=== PATIENT | female | born 1980 | race Caucasian/White ===

== ENCOUNTER 2019-09-13 06:39 | Day surgery (SDC) | payer BC ==
[2019-09-12 17:26] LABS: BLOOD UREA NITROGEN,BUN 17 mg/dL (7.0-18.0); CARBON DIOXIDE,CO2 19.9 mmol/L (21.0-32.0); CHLORIDE,CL 104 mmol/L (98-107); GLUCOSE RANDOM 134 mg/dL (74-106); POTASSIUM,K 3.5 mmol/L (3.5-5.1); SODIUM,NA 140 mmol/L (136-145)
[~2019-09-13 06:39] MED LIST: ceFAZolin 2 GM in Premix Bag 1 BAG IV ONE
[2019-09-13] MEDS: Lactated Ringers 1,000 ML IV SCH ×2 (07:00→13:11)
[2019-09-13] MEDS ORDERED: Scopolamine 1.5 MG Transdermal Patch TRDERM PRN (07:01)
--- NOTE | 2019-09-13 07:03 | PCM.PREANE ---
Preanesthetic Assessment - Anesthesia/Transfusion/Family Hx Anesthesia History: Prior Anesthesia Without Reaction Family History of Anesthesia Reaction: No Transfusion History: No Prior Transfusion(s) Intubation History: Unknown - Review of Systems General: No Symptoms Pulmonary: No Symptoms Cardiovascular: No Symptoms Gastrointestinal: No Symptoms Neurological: No Symptoms Other: Reports: None - Physical Assessment Height: 5 ft 2.5 in Weight: 103.419 kg ASA Class: 2 Mental Status: Alert & Oriented x3 Airway Class: Mallampati = 2 Dentition: Reports: Normal Dentition Thyro-Mental Finger Breadths: 3 Mouth Opening Finger Breadths: 3 ROM/Head Extension: Full Lungs: Clear to Auscultation, Normal Respiratory Effort Cardiovascular: Regular Rate, Regular Rhythm - Lab Values: Laboratory Last Values WBC 8.90 K/uL (4.0-11.0) 09/12/19 16: RBC 5.14 M/uL (4.30-5.90) 09/12/19 16:27 Hgb 14.2 g/dL (12.0-16.0) 09/12/19 16: Hct 41.9 % (36.0-46.0) 09/12/19 16:27 MCV 81.5 fL (80.0-98.0) 09/12/19 16: MCH 27.6 pg (27.0-32.0) 09/12/19 16: MCHC 33.9 g/dL (31.0-37.0) 09/12/19 16:27 RDW Std Deviation 41.0 fl (28.0-62.0) 09/12/19 16:27 RDW Coeff of Anca 14 % (11.0-15.0) 09/12/19 16:27 Plt Count 280 K/uL (150-400) 09/12/19 16:27 MPV 9.80 fL (7.40-12.00) 09/12/19 16: Nucleated RBC % 0.0 /100WBC 09/12/19 16: Nucleated RBCs # 0 K/uL 09/12/19 16:27 Sodium 140 mmol/L (136-145) 09/12/19 16:27 Potassium 3.5 mmol/L (3.5-5.1) 09/12/19 16: Chloride 104 mmol/L (98-107) 09/12/19 16:27 Carbon Dioxide 19.9 mmol/L (21.0-32.0) L 09/12/19 16:27 BUN 17 mg/dL (7.0-18.0) 09/12/19 16:27 Creatinine 0.9 mg/dL (0.6-1.0) 09/12/19 16:27 Est Cr Clr Drug Dosing 66.55 mL/min 09/12/19 16:27 Estimated GFR (MDRD) > 60.0 ml/min 09/12/19 16:27 Glucose 134 mg/dL (74-106) H 09/12/19 16:27 Calcium 9.2 mg/dL (8.5-10.1) 09/12/19 16:27 Blood Type O POSITIVE 09/12/19 16:27 Antibody Screen NEGATIVE 09/12/19 16:27 - Allergies Allergies/Adverse Reactions: Allergies Allergy/AdvReac Type Severity Reaction Status Date / Time No Known Allergies Allergy Verified 09/07/19 11:42 - Blood Blood Available: No - Anesthesia Plan Pre-Op Medication Ordered: None - Acknowledgements Anesthesia Type Planned: General Anesthesia Pt an Appropriate Candidate for the Planned Anesthesia: Yes Alternatives and Risks of Anesthesia Discussed w Pt/Guardian: Yes Pt/Guardian Understands and Agrees with Anesthesia Plan: Yes PreAnesthesia Questionnaire HEENT History: Reports: Other (See Below) Other HEENT History: wears contacts/glasses Cardiovascular History: Reports: None, Hypertension (on and off, no medications prescribed) Respiratory History: Reports: None Gastrointestinal History: Reports: None Genitourinary History: Reports: None SIZE STAMPER History: Reports: Musculoskeletal History: Reports: Fracture Other Musculoskeletal History: hx fx wrist as a child Neurological History: Reports: None Psychiatric History: Reports: None Endocrine/Metabolic History: Reports: Obesity/BMI 30+ (BMI 41) Hematologic History: Reports: None Immunologic History: Reports: None Oncologic (Cancer) History: Reports: None Dermatologic History: Reports: None - Past Surgical History Head Surgeries/Procedures: Reports: None HEENT Surgical History: Reports: Adenoidectomy, Tonsillectomy Cardiovascular Surgical History: Reports: None Respiratory Surgical History: Reports: None GI Surgical History: Reports: Cholecystectomy Female Surgical History: Reports: Breast Biopsy, Breast Reduction, Other ( See Below) Other Female Surgeries/Procedures: ESSURE Endocrine Surgical History: Reports: None Neurological Surgical History: Reports: None Musculoskeletal Surgical History: Reports: None Oncologic Surgical History: Reports: None Dermatological Surgical History: Reports: None - SUBSTANCE USE Smoking Status *Q: Never Smoker - HOME MEDS Home Medications: Home Meds Ibuprofen [Advil] 1 - 2 tab PO ASDIRECTED PRN 09/07/19 [History] - CURRENT (IN HOUSE) MEDS Current Meds: Current Medications Lactated Ringer's (Ringers, Lactated) 1,000 mls @ 125 mls/hr IV ASDIRECTED FORMERLY [facility], 1928–1983 Cefazolin Sodium/Dextrose 2 gm (/ Premix) 50 mls @ 100 mls/hr IV ONETIME ONE Stop: 09/13/19 07:01
[2019-09-13] MEDS ORDERED: Scopolamine 1.5 MG Transdermal Patch ONE (07:09)
[2019-09-13] MEDS ORDERED: Rocuronium 100 MG/10 ML Syringe ONE (07:18)
[2019-09-13] MEDS ORDERED: Lidocaine 2% 5 ML SDV ONE (07:18)
[2019-09-13] MEDS ORDERED: Propofol 200 MG/20 ML SDV ONE (07:19)
[2019-09-13] MEDS ORDERED: Midazolam 1 MG/ML 2 ML SDV ONE (07:19)
[2019-09-13] MEDS ORDERED: fentaNYL 250 MCG/5 ML SDV ONE (07:19)
[2019-09-13] MEDS ORDERED: Bupivacaine 0.5% 30 ML SDV ONE (07:30)
[2019-09-13] MEDS ORDERED: Methylene Blue 50 MG/10 ML Ampule ONE (07:30)
[2019-09-13] MEDS ORDERED: ceFAZolin/Dextrose,Iso-Osmotic 2 GM/50 ML Duplex Bag IV ONE (07:46)
[2019-09-13] MEDS ORDERED: Glycopyrrolate 0.2 MG/ML SDV ONE ×2 (08:46→08:47)
[2019-09-13] MEDS ORDERED: fentaNYL 100 MCG/2 ML SDV IVPUSH PRN (09:05)
[2019-09-13] MEDS ORDERED: HYDROmorphone 1 MG/ML Syringe IVPUSH ONE (09:06)
[2019-09-13] MEDS ORDERED: Ketorolac 30 MG/ML SDV IVPUSH ONE ×2 (09:06→10:26)
[2019-09-13] MEDS ORDERED: Acetaminophen 1,000 MG in Premix Bag 1 BAG IV ONE (09:06)
[2019-09-13] MEDS ORDERED: Octyl 2-Cyanoacrylate 1 Tube ONE (09:14)
[2019-09-13] MEDS ORDERED: HYDROmorphone 2 MG/ML Syringe IVPUSH ONE (09:15)
[2019-09-13] MEDS ORDERED: Fluorescein 5 ML Vial ONE (09:40)
[2019-09-13] MEDS ORDERED: Ondansetron 4 MG/2 ML SDV ONE (09:47)
[2019-09-13] MEDS ORDERED: Furosemide 40 MG/4 ML VIAL ONE (09:47)
[2019-09-13] MEDS ORDERED: Ketorolac 30 MG/ML SDV ONE (09:59)
[2019-09-13] MEDS ORDERED: Sugammadex Sodium 200 MG/2 ML VIAL ONE (10:00)
--- NOTE | 2019-09-13 10:25 | PCM.OPNOTE ---
- General Post-Op/Procedure Note Date of Surgery/Procedure: 09/13/19 Operative Procedure(s): laparoscopically assisted vaginal hysterectomy, bilateral salpingectomy, excision of right paraovarian cyst (torsed), and cystoscopy Findings: normal appearing tubes and uterus, right ovary had a torse, slightly pedunculated cyst (paraovarian cyst. Ovaries otherwise normal. The appendix appeared normal, there some filmy adhesions in the LLQ. On cystoscopy there was copious flow of bright green urine from bilateral ureters Pre Op Diagnosis: menorrhagia Post-Op Diagnosis: Same and right paraovarian cyst. Anesthesia Technique: General ET Tube Primary Surgeon: Jessy Hoyt Secondary Surgeon: Kavita Carmona Anesthesia Provider: Carly Sykes Medical Certification Specialist: Gio Ruano Pathology: right paraovarian cyst, torsed, hemorrhagic, uterus, bilateral fallopian tubes with Essure implants. Fluid Replacement, Intraop: 2,400 Output, Urine Amount: 500 EBL in mLs: 250 Complications: None Known Condition: Good
[2019-09-13] MEDS ORDERED: Promethazine 25 MG/ML SDV IM PRN (10:26)
[2019-09-13] MEDS ORDERED: Morphine 4 MG/ML Syringe IVPUSH PRN (10:26)
[2019-09-13] MEDS ORDERED: Ondansetron 4 MG/2 ML SDV IVPUSH PRN (10:26)
[2019-09-13] MEDS ORDERED: Acetaminophen/oxyCODONE 325-5 MG Tab PO PRN (10:26)
[2019-09-13] MEDS ORDERED: Meperidine PF 25 MG/ML Syringe IVPUSH ONE (10:41)
[2019-09-13] MEDS ORDERED: HYDROmorphone 2 MG/ML Syringe IVPUSH PRN (11:09)
--- NOTE | 2019-09-13 11:16 | PCM.POSTAN ---
POST ANESTHESIA ASSESSMENT - MENTAL STATUS Mental Status: Alert, Oriented - VITAL SIGNS Vital Signs: Last Vital Signs Temp 35.9 C 09/13/19 10:18 Pulse 86 09/13/19 11:09 Resp 10 L 09/13/19 11:09 BP 163/93 H 09/13/19 11:09 Pulse Ox 98 09/13/19 11:09 - RESPIRATORY Respiratory Status: Respiratory Rate WNL, Airway Patent, O2 Saturation Stable - CARDIOVASCULAR CV Status: Pulse Rate WNL, Blood Pressure Stable - GASTROINTESTINAL GI Status: No Symptoms - PAIN Pain Score: 4 - POST OP HYDRATION Hydration Status: Adequate & Stable - OBSERVATIONS Free Text/Narrative:: No anesthesia problems
--- NOTE | 2019-09-13 11:40 | OR ---
SURGEON: Jessy Hoyt M.D. DATE OF PROCEDURE: 09/13/2019 PREOPERATIVE DIAGNOSIS: Menorrhagia. POSTOPERATIVE DIAGNOSES: Menorrhagia and right paraovarian cyst. PROCEDURES PERFORMED: Laparoscopically-assisted vaginal hysterectomy, bilateral salpingectomy, excision of right paraovarian cyst, and cystoscopy. PRIMARY SURGEON: Jessy Hoyt MD. COMBINATION BUILDING INSPECTOR: Kavita Carmona MD. ANESTHESIA: General endotracheal. FLUIDS: 2400 mL of crystalloid. ESTIMATED BLOOD LOSS: 350 mL. URINE OUTPUT: 500 mL. FINDINGS: Normal-appearing uterus. The Essure implants were noted in the proximal tube in the appropriate position. Normal-appearing left tube and ovary. The right tube appeared normal, however, there was a hemorrhagic, torsed, slightly pedunculated right paraovarian cyst that was removed. Upon cystoscopy, there was no evidence of any trauma to the bladder mucosa. There was copious flow of urine from bilateral ureteral orifices. COMPLICATIONS: None known. DISPOSITION: Stable to Recovery. PATHOLOGY SPECIMEN: Uterus, bilateral fallopian tubes with the Essure implants, and the right paraovarian cyst. BRIEF HISTORY: This is a 39-year-old female. She presents with complaint of heavy periods and pain prior to her period that is debilitating and severe, worsening over the past year. She states that she will bleed through a super plus tampon and a pad in an hour. Her periods occur every 21 days with spotting randomly between. She has no postcoital bleeding. She has been offered conservative management with Lysteda, levonorgestrel IUD, endometrial ablation; however, she desires definitive therapy with hysterectomy. Ultrasound showed endometrial thickness of 7 mm. Endometrial biopsy was performed, was benign. She presents for laparoscopically-assisted vaginal hysterectomy with two prior vaginal deliveries. Risks were discussed including bleeding; infection; thromboembolic event; injury to bowel, bladder, blood vessels, ureters, or other organs; risk of anesthesia; also risk of change in sexual function. Understanding all these, she does desire to proceed. DESCRIPTION OF PROCEDURE: With the patient in dorsal lithotomy position, under adequate general endotracheal anesthesia, the abdomen was prepped with chlorhexidine. The perineum and vagina were prepped with Betadine and draped in the usual fashion for laparoscopic surgery. SCDs were in place. Ivey catheter had been placed and backfilled with 30 mL of dilute indigo carmine, and she had received 2 g of Ancef IV. An appropriate time-out was held, and after appropriately draping the patient, the bimanual examination was performed with a well-supported, but mobile 10-week size uterus. No adnexal masses were palpable. The speculum was placed in the vagina and the cervix was grasped with a Juanita tenaculum. The cervix was dilated to an 8 mm Hegar dilator. The ZUMI uterine manipulator was placed and the balloon was filled with 3 mL of air. The instruments were removed from the vagina. Railway Shunter's gloves were changed. Attention was then turned abdominally, where 3 mL of 0.25% Marcaine was injected cephalad from the umbilicus. A transverse curvilinear incision was made just above the umbilicus and the anterior abdominal wall was elevated. Veress needle was inserted. Opening pressure was 5 mmHg. Hanging drop test also confirmed the intraperitoneal placement. CO2 was insufflated to develop an adequate pneumoperitoneum of 15 mmHg. A 5 mm port was then placed after the Veress needle was removed and the laparoscope was placed into the abdominal cavity. There was no evidence of any trauma from the laparoscope placement site. The right tube had the obvious 3 cm paratubal cyst that was hemorrhagic. Otherwise, upon inspection of pelvis, there were no significant adhesions except some filmy bowel adhesions in the left lower quadrant away from the anticipated port placement site. The patient was placed in steep Trendelenburg position. Two additional ports were placed, 2 cm medial and cephalad from the anterior superior iliac spine on the right and the left under direct visualization. The uterus was then elevated. The ureters were identified deep in the pelvis and the paraovarian cyst on the right was removed by cauterizing across the base with the LigaSure. This was then placed in the posterior cul-de-sac for removal with the uterus. The tip of the right tube was grasped and the mesosalpinx was incised, starting distally and proceeding proximally using the LigaSure. The uteroovarian ligament was then doubly cauterized and cut and then proceeding down the broad ligament beginning with incising, doubly cauterizing, and cutting the round ligament. The anterior and posterior leaves of the broad ligament were then dissected and opened. The uterine vessels were skeletonized and doubly cauterized and cut and the anterior leaf of the broad ligament was opened and this incision was continued anteriorly across the lower uterine segment to develop an adequate bladder flap. This process was repeated on the left without difficulty, and once the uterine vessels were cauterized and the bladder flap was adequately developed, the abdomen was then desufflated. The instruments had been removed and attention was then turned vaginally. The Ivey catheter was opened to allow drainage. A weighted speculum was placed posteriorly and vaginal sidewall retractors were utilized. The cervix was grasped with a Juanita tenaculum after the ZUMI uterine manipulator was removed. The cervix was circumscribed using electrocautery. The posterior cul-de-sac was entered sharply. The cyst was not immediately seen. Therefore, the Kwabena-Auvard speculum was placed posteriorly. The anterior cul-de-sac was entered using Metzenbaum scissors with careful dissection immediately adjacent to the uterus, and with sharp and blunt dissection, the anterior cul-de-sac was entered. A right angle retractor was placed. The uterosacral ligaments were then doubly clamped with Mekhi clamps, cut, and ligated using a simple tie followed by Mekhi ligature of 2-0 Polysorb. Two additional pedicles were taken on the right and the left for the lower portion of the uterosacral ligament, doubly clamping, cutting, and ligating using a simple tie followed by a Mekhi ligature of 2-0 Polysorb. With this, the uterus and tubes were free and were delivered vaginally, sent to pathology. The previously excised paraovarian cyst was then identified and grasped with a [place] clamp and sent as a separate pathology specimen. The retained ligatures of the uterosacral ligaments were then ligated to the vaginal apices bilaterally. Careful inspection was performed to confirm hemostasis. A single pedicle was taken on the left just above the uterosacral ligament with a Mekhi clamp, and a simple suture was placed for complete hemostasis. No further bleeding was identified with careful inspection and therefore any packing was removed from the abdominal cavity. The vaginal mucosa was closed with a running lock suture of 0 Polysorb, and the Ivye catheter was removed. IV Lasix and fluorescein were given. Cystoscopy was performed using sterile water as a distending medium. Bilateral ureteral orifices were easily identified and there was copious flow of urine that had been dyed bright green with the fluorescein. There was also no evidence of any trauma to the bladder mucosa. This being completed, the cystoscope was removed. The Ivey catheter was replaced and a speculum was placed in the vagina to inspect the cuff, which was hemostatic. There was no collection of blood in the vagina. Attention was then turned laparoscopically after cut to length operator's gloves were changed. The abdomen was re-insufflated and a careful and thorough inspection was performed utilizing sterile water as an irrigant. There was no bleeding from any areas of the pelvis under high and low pressure and therefore the abdomen was desufflated. The port sites were removed and the skin was closed with a subcuticular suture of 4-0 Monocryl. Final sponge, needle, and instrument counts were reported as correct. There were no known complications. The patient was transferred to Recovery in good condition. SYLVIA ANNA /[id number]
[2019-09-13] MEDS: HYDROmorphone 2 MG/ML Syringe IVPUSH PRN ×2 (13:06→21:16)
[2019-09-13] MEDS: Ketorolac 30 MG/ML SDV IVPUSH SCH ×2 (15:51→22:32)
[2019-09-13] MEDS: Acetaminophen/oxyCODONE 325-5 MG Tab PO PRN (17:10)
[2019-09-14] MEDS: Ketorolac 30 MG/ML SDV IVPUSH SCH (04:29)
[2019-09-14 06:24] LABS: BLOOD UREA NITROGEN,BUN 12 mg/dL (7.0-18.0); CARBON DIOXIDE,CO2 27.7 mmol/L (21.0-32.0); CHLORIDE,CL 103 mmol/L (98-107); GLUCOSE RANDOM 102 mg/dL (74-106); POTASSIUM,K 3.6 mmol/L (3.5-5.1); SODIUM,NA 137 mmol/L (136-145)
--- NOTE | 2019-09-14 07:44 | PCM48HPAN ---
Post Anesthesia Note - EVALUATION WITHIN 48HRS OF ANESTHETIC Vital Signs in Normal Range: Yes Patient Participated in Evaluation: Yes Respiratory Function Stable: Yes Airway Patent: Yes Cardiovascular Function Stable: Yes Hydration Status Stable: Yes Pain Control Satisfactory: Yes Nausea and Vomiting Control Satisfactory: Yes Mental Status Recovered: Yes Vital Signs: Last Vital Signs Temp 36.8 C 09/14/19 04:58 Pulse 82 09/14/19 04:58 Resp 14 09/14/19 04:58 BP 108/66 09/14/19 04:58 Pulse Ox 95 09/14/19 04:58
[2019-09-14] MEDS: Acetaminophen/oxyCODONE 325-5 MG Tab PO PRN (08:32)
--- NOTE | 2019-09-14 08:46 | PCM.SURGPN ---
- General Info Date of Service: 09/14/19 Date of Surgery/Procedure: 09/13/19 POD#: 1 Post-Op Diagnosis: menorrhagia Functional Status: Reports: Pain Controlled (moderately well controlled. Movement helps, taking percocet occcasionally. ), Tolerating Diet, Ambulating, Urinating - Review of Systems General: Reports: No Symptoms HEENT: Reports: No Symptoms Pulmonary: Reports: No Symptoms Cardiovascular: Reports: No Symptoms Gastrointestinal: Reports: No Symptoms Genitourinary: Reports: No Symptoms Musculoskeletal: Reports: No Symptoms Skin: Reports: No Symptoms Neurological: Reports: No Symptoms Psychiatric: Reports: No Symptoms - Patient Data Vitals - Most Recent: Last Vital Signs Temp 36.8 C 09/14/19 04:58 Pulse 82 09/14/19 04:58 Resp 14 09/14/19 04:58 BP 108/66 09/14/19 04:58 Pulse Ox 95 09/14/19 04:58 Weight - Most Recent: 103.419 kg I&O - Last 24 Hours: Intake & Output 09/13/19 09/14/19 09/14/19 22:59 06:59 14:59 Output Total 325 700 Balance -325 -700 Lab Results Last 24 Hrs: Laboratory Results - last 24 hr 09/14/19 09/14/19 Range/Units 06:00 06:00 Hgb 10.9 L (12.0-16.0) g/dL Hct 32.6 L (36.0-46.0) % Sodium 137 (136-145) mmol/L Potassium 3.6 (3.5-5.1) mmol/L Chloride 103 (98-107) mmol/L Carbon Dioxide 27.7 (21.0-32.0) mmol/L BUN 12 (7.0-18.0) mg/dL Creatinine 0.7 (0.6-1.0) mg/dL Est Cr Clr Drug Dosing 85.57 mL/min Estimated GFR (MDRD) > 60.0 ml/min Glucose 102 (74-106) mg/dL Calcium 8.3 L (8.5-10.1) mg/dL Med Orders - Current: Current Medications Fentanyl (Sublimaze) 50 - 100 mcg IVPUSH Q5M PRN PRN Reason: Pain (severe 7-10) Hydromorphone HCl (Dilaudid) 1 mg IVPUSH Q1H PRN PRN Reason: Abdominal Pain Last Admin: 09/13/19 21:16 Dose: 1 mg Hydromorphone HCl (Dilaudid) 1 - 2 mg IVPUSH ONETIME PRN PRN Reason: Pain Last Admin: 09/13/19 10:50 Dose: 1 mg Lactated Ringer's (Ringers, Lactated) 1,000 mls @ 125 mls/hr IV ASDIRECTED [facility] Last Admin: 09/13/19 13:11 Dose: 125 mls/hr Ketorolac Tromethamine (Toradol) 30 mg IVPUSH Q6H [facility] Stop: 09/18/19 10:26 Last Admin: 09/14/19 04:29 Dose: 30 mg Morphine Sulfate (Morphine) 4 mg IVPUSH Q2H PRN PRN Reason: Pain (severe 7-10) Ondansetron HCl (Zofran) 4 mg IVPUSH Q6H PRN PRN Reason: Nausea/Vomiting Oxycodone/Acetaminophen (Percocet 325-5 Mg) 1 tab PO Q4H PRN PRN Reason: Pain (moderate 4-6) Last Admin: 09/14/19 08:32 Dose: 1 tab Oxycodone/Acetaminophen (Percocet 325-5 Mg) 2 tab PO Q4H PRN PRN Reason: Pain (moderate 4-6) Promethazine HCl (Phenergan) 25 mg IM Q6H PRN PRN Reason: Nausea/Vomiting Scopolamine (Transderm-Scop) 1.5 mg TRDERM Q72H PRN PRN Reason: Nausea Last Admin: 09/13/19 07:10 Dose: 1.5 mg Discontinued Medications Bupivacaine HCl (Marcaine 0.5%) Confirm Administered Dose 30 ml .ROUTE .STK-MED ONE Stop: 09/13/19 07:31 Cefazolin Sodium/Dextrose (Ancef) Confirm Administered Dose 2 gm IV .STK-MED ONE Stop: 09/13/19 07:47 Fentanyl (Sublimaze) Confirm Administered Dose 250 mcg .ROUTE .STK-MED ONE Stop: 09/13/19 07:20 Fluorescein Sodium (Ak-Fluor) Confirm Administered Dose 5 ml .ROUTE .STK-MED ONE Stop: 09/13/19 09:41 Furosemide (Lasix) Confirm Administered Dose 40 mg .ROUTE .STK-MED ONE Stop: 09/13/19 09:48 Glycopyrrolate (Robinul) Confirm Administered Dose 0.2 mg .ROUTE .STK-MED ONE Stop: 09/13/19 08:47 Glycopyrrolate (Robinul) Confirm Administered Dose 0.2 mg .ROUTE .STK-MED ONE Stop: 09/13/19 08:48 Hydromorphone HCl (Dilaudid) 1 mg IVPUSH ONETIME ONE Stop: 09/13/19 09:16 Last Admin: 09/13/19 10:25 Dose: 1 mg Cefazolin Sodium/Dextrose 2 gm (/ Premix) 50 mls @ 100 mls/hr IV ONETIME ONE Stop: 09/13/19 07:01 Acetaminophen 1,000 mg/ Premix 100 mls @ 400 mls/hr IV NOW ONE Stop: 09/13/19 09:20 Last Admin: 09/13/19 10:30 Dose: 400 mls/hr Acetaminophen (Ofirmev) Confirm Administered Dose 100 mls @ as directed .ROUTE .ST-MED ONE Stop: 09/13/19 10:24 Ketorolac Tromethamine (Toradol) 30 mg IVPUSH ONETIME ONE Stop: 09/13/19 09:07 Last Admin: 09/13/19 10:38 Dose: 30 mg Ketorolac Tromethamine (Toradol) Confirm Administered Dose 30 mg .ROUTE .STK- MED ONE Stop: 09/13/19 10:00 Ketorolac Tromethamine (Toradol) 30 mg IVPUSH ONETIME ONE Stop: 09/13/19 10:27 Lidocaine (Xylocaine-Mpf 2%) Confirm Administered Dose 5 ml .ROUTE .STK-MED ONE Stop: 09/13/19 07:19 Meperidine HCl (Demerol) 25 mg IVPUSH ONETIME ONE Stop: 09/13/19 10:42 Last Admin: 09/13/19 10:45 Dose: 25 mg Methylene Blue (Provayblue) Confirm Administered Dose 50 mg .ROUTE .STK-MED ONE Stop: 09/13/19 07:31 Midazolam HCl (Versed 1 Mg/Ml) Confirm Administered Dose 2 mg .ROUTE .STK-MED ONE Stop: 09/13/19 07:20 Octyl Cyanoacrylate (Dermabond Advance) Confirm Administered Dose 1 applic .ROUTE .STK-MED ONE Stop: 09/13/19 09:15 Ondansetron HCl (Zofran) Confirm Administered Dose 8 mg .ROUTE .STK-MED ONE Stop: 09/13/19 09:48 Propofol (Diprivan 20 Ml) Confirm Administered Dose 200 mg .ROUTE .STK-MED ONE Stop: 09/13/19 07:20 Rocuronium Hamilton (Zemuron) Confirm Administered Dose 100 mg .ROUTE .STK-MED ONE Stop: 09/13/19 07:19 Scopolamine (Transderm-Scop) Confirm Administered Dose 1.5 mg .ROUTE .STK-MED ONE Stop: 09/13/19 07:10 Sugammadex Sodium (Bridion) Confirm Administered Dose 200 mg .ROUTE .STK-MED ONE Stop: 09/13/19 10:01 - Exam Wound/Incisions: Dressing Dry and Intact General: Alert, Oriented HEENT: Pupils Equal Neck: Supple Lungs: Normal Respiratory Effort GI/Abdominal Exam: Soft, Non-Tender, No Organomegaly, No Distention, No Mass Extremities: Normal Inspection, Non-Tender, No Pedal Edema Skin: Warm, Dry, Intact Neurological: No New Focal Deficit Psy/Mental Status: Alert, Normal Affect, Normal Mood Sepsis Event Note - Evaluation Sepsis Screening Result: No Definite Risk - Focused Exam Vital Signs: Vital Signs Temp Pulse Resp BP Pulse Ox 09/14/19 04:58 36.8 C 82 14 108/66 95 Date Exam was Performed: 09/14/19 Time Exam was Performed: 08:44 - Problem List & Annotations (1) Menorrhagia SNOMED Code(s): 018615713 Code(s): N92.0 - EXCESSIVE AND FREQUENT MENSTRUATION WITH REGULAR CYCLE Status: Acute Current Visit: Yes Qualifiers: Menorrahagia type: with irregular cycle Qualified Code(s): N92.1 - Excessive and frequent menstruation with irregular cycle - Problem List Review Problem List Initiated/Reviewed/Updated: Yes - My Orders Last 24 Hours: Active Orders 24 hr Category Date Time Status Patient Status [ADT] Routine ADT 09/13/19 10:26 Active Antiembolic Devices [RC] PER UNIT ROUTINE Care 09/13/19 10:26 Active Bradycardia-Neuroaxis [employer] [RC] ROUTINE Care 09/13/19 09:08 Active Hypertension-Neuroaxis [employer] [RC] ROUTINE Care 09/13/19 09:08 Active Hypotension-Neuroaxis [employer] [RC] ROUTINE Care 09/13/19 09:08 Active Notify Provider Intake and Out [RC] ASDIRECTED Care 09/13/19 10:26 Active Notify Provider Vital Signs [RC] ASDIRECTED Care 09/13/19 10:26 Active Oxygen Therapy [RC] ASDIRECTED Care 09/13/19 10:26 Active RT Incentive Spirometry [RC] Q2HWA Care 09/13/19 10:26 Active Ready for Discharge [RC] PER UNIT ROUTINE Care 09/14/19 08:19 Active Up ad Anila [RC] PER UNIT ROUTINE Care 09/13/19 10:26 Active Urinary Catheter Removal [RC] Per Unit Routine Care 09/13/19 10:26 Active Vital Signs [RC] PER UNIT ROUTINE Care 09/13/19 10:26 Active Regular Diet [DIET] Diet 09/13/19 Dinner Active Acetaminophen/oxyCODONE [Percocet 325-5 MG] Med 09/13/19 10:26 Active 1 tab PO Q4H PRN Acetaminophen/oxyCODONE [Percocet 325-5 MG] Med 09/13/19 10:26 Active 2 tab PO Q4H PRN HYDROmorphone [Dilaudid] Med 09/13/19 11:09 Active 1 - 2 mg IVPUSH ONETIME PRN HYDROmorphone [Dilaudid] Med 09/13/19 09:11 Active 1 mg IVPUSH Q1H PRN Ketorolac [Toradol] Med 09/13/19 10:30 Active 30 mg IVPUSH Q6H Morphine Med 09/13/19 10:26 Active 4 mg IVPUSH Q2H PRN Ondansetron [Zofran] Med 09/13/19 10:26 Active 4 mg IVPUSH Q6H PRN Promethazine [Phenergan] Med 09/13/19 10:26 Active 25 mg IM Q6H PRN fentaNYL [Sublimaze] Med 09/13/19 09:05 Active 50 - 100 mcg IVPUSH Q5M PRN Peripheral IV Discontinue [OM.PC] Routine Oth 09/13/19 10:26 Ordered Sequential Compression Device [OM.PC] Per Unit Routine Oth 09/13/19 10:26 Ordered Resuscitation Status Routine Resus Stat 09/13/19 10:26 Ordered Medication Orders Fentanyl (Sublimaze) 50 - 100 mcg IVPUSH Q5M PRN PRN Reason: Pain (severe 7-10) Hydromorphone HCl (Dilaudid) 1 mg IVPUSH Q1H PRN PRN Reason: Abdominal Pain Last Admin: 09/13/19 21:16 Dose: 1 mg Admin: 09/13/19 13:06 Dose: 1 mg Hydromorphone HCl (Dilaudid) 1 - 2 mg IVPUSH ONETIME PRN PRN Reason: Pain Last Admin: 09/13/19 10:50 Dose: 1 mg Lactated Ringer's (Ringers, Lactated) 1,000 mls @ 125 mls/hr IV ASDIRECTED [facility] Last Admin: 09/13/19 13:11 Dose: 125 mls/hr Infusion: 09/13/19 13:11 Dose: 125 mls/hr Admin: 09/13/19 07:00 Dose: 125 mls/hr Ketorolac Tromethamine (Toradol) 30 mg IVPUSH Q6H [facility] Stop: 09/18/19 10:26 Last Admin: 09/14/19 04:29 Dose: 30 mg Admin: 09/13/19 22:32 Dose: 30 mg Admin: 09/13/19 15:51 Dose: 30 mg Morphine Sulfate (Morphine) 4 mg IVPUSH Q2H PRN PRN Reason: Pain (severe 7-10) Ondansetron HCl (Zofran) 4 mg IVPUSH Q6H PRN PRN Reason: Nausea/Vomiting Oxycodone/Acetaminophen (Percocet 325-5 Mg) 1 tab PO Q4H PRN PRN Reason: Pain (moderate 4-6) Last Admin: 09/14/19 08:32 Dose: 1 tab Admin: 09/13/19 17:10 Dose: 1 tab Oxycodone/Acetaminophen (Percocet 325-5 Mg) 2 tab PO Q4H PRN PRN Reason: Pain (moderate 4-6) Promethazine HCl (Phenergan) 25 mg IM Q6H PRN PRN Reason: Nausea/Vomiting Scopolamine (Transderm-Scop) 1.5 mg TRDERM Q72H PRN PRN Reason: Nausea Last Admin: 09/13/19 07:10 Dose: 1.5 mg - Assessment Assessment (Free Text/Narrative):: POD #1 after LAVH, ambulating, has urinated, pain is adequately controlled. Would like to to home. Vitals are stable. - Plan Plan (Free Text/Narrative):: Dismiss to home, discharge instructions reviewed.
[2019-09-14 09:03] VITALS: BP 118/74; PULSE 74
== END 2019-09-14 09:42 ==
LOC: MW.SDS 06:39 → MW.OB 10:48 → MW.SDS 09-14 09:42
PROVIDERS: ATTEND Obstetrics & Gynecology
DX: N92.0 Excessive and frequent menstruation with regular cycle (principal); N83.291 Other ovarian cyst, right side; I10 Essential (primary) hypertension; E66.9 Obesity, unspecified; Z68.41 Body mass index [BMI] 40.0-44.9, adult
CPT/HCPCS: 00944; 36415; 80048; 85014; 85018; 85027; 86850; 86900; 86901; A9270-GY; J0131; J0690; J1170; J1885; J1940; J2001; J2175; J2250; J2405; J2704; J3010; J3490; J7120

== ENCOUNTER 2020-07-17 12:29 | Emergency (ER) | payer BC ==
[2020-07-17] MEDS ORDERED: Sodium Chloride 0.9% 1,000 ML IV ONE (12:53)
[2020-07-17] MEDS ORDERED: Metoclopramide 10 MG/2 ML SDV IVPUSH ONE (12:53)
[2020-07-17] MEDS ORDERED: Labetalol 100 MG/20 ML MDV IVPUSH ONE (12:54)
--- NOTE | 2020-07-17 13:01 | EDM.PDOC ---
ED HPI GENERAL MEDICAL PROBLEM - General Chief Complaint: Gastrointestinal Problem Stated Complaint: high blood pressure/headche Time Seen by Provider: 07/17/20 12:38 Source of Information: Reports: Patient History Limitations: Reports: No Limitations - History of Present Illness INITIAL COMMENTS - FREE TEXT/NARRATIVE: Presents to the emergency room reporting high blood pressure. The patient states that she has a history of labile blood pressure. She has never been on blood pressure medications. On June 27, 2020 she underwent gastric bypass surgery in [place]. Since that time her blood pressure has been quite elevated--she shows me her home blood pressure monitor readings 205/112, 170/121, 177/144. Along with that she has been nauseated and has a headache. She has not been taking in as much fluid as she should be due to the nausea and believes she is dehydrated. She did see her primary care provider last week about her blood pressure but was told to just watch it. She has had no fever or abdominal pain or tenderness and her surgical sites are healing well. She has a follow-up tomorrow with her bariatric surgeon. She had a hysterectomy. - Related Data Allergies Allergy/AdvReac Type Severity Reaction Status Date / Time No Known Allergies Allergy Verified 09/07/19 11:42 Home Meds: Home Meds Acetaminophen [Tylenol] 500 mg PO Q6HR PRN 07/17/20 [History] Metoprolol Succinate [Toprol XL] 25 mg PO DAILY #30 tab.er 07/17/20 [Rx] Ondansetron [Zofran ODT] 4 mg PO Q6H PRN 07/17/20 [History] Past Medical History HEENT History: Reports: Other (See Below) Other HEENT History: wears contacts/glasses Cardiovascular History: Reports: Hypertension Respiratory History: Reports: None Gastrointestinal History: Reports: None Genitourinary History: Reports: None [employer] PROC[employer]OR History: Reports: Musculoskeletal History: Reports: Fracture Other Musculoskeletal History: hx fx wrist as a child Neurological History: Reports: None Psychiatric History: Reports: None Endocrine/Metabolic History: Reports: Obesity/BMI 30+ Hematologic History: Reports: None Immunologic History: Reports: None Oncologic (Cancer) History: Reports: None Dermatologic History: Reports: None - Past Surgical History Head Surgeries/Procedures: Reports: None HEENT Surgical History: Reports: Adenoidectomy, Tonsillectomy Respiratory Surgical History: Reports: None GI Surgical History: Reports: Cholecystectomy Female Surgical History: Reports: Breast Biopsy, Breast Reduction, Other (See Below) Other Female Surgeries/Procedures: ESSURE Endocrine Surgical History: Reports: None Neurological Surgical History: Reports: None Musculoskeletal Surgical History: Reports: None Oncologic Surgical History: Reports: None Dermatological Surgical History: Reports: None Social & Family History - Family History Family Medical History: No Pertinent Family History - Tobacco Use Tobacco Use Status *Q: Never Tobacco User - Caffeine Use Caffeine Use: Reports: None - Recreational Drug Use Recreational Drug Use: No ED ROS GENERAL - Review of Systems Review Of Systems: Comprehensive ROS is negative, except as noted in HPI. ED EXAM, GI/ABD - Physical Exam Exam: See Below Exam Limited By: No Limitations General Appearance: Alert, No Apparent Distress Ears: Normal External Exam Nose: Normal Inspection Throat/Mouth: Normal Inspection Head: Atraumatic, Normocephalic Neck: Normal Inspection Respiratory/Chest: No Respiratory Distress, Lungs Clear, Normal Breath Sounds Cardiovascular: Normal Peripheral Pulses, Regular Rate, Rhythm, No Murmur GI/Abdominal Exam: Soft, Non-Tender, No Organomegaly, No Distention Neurological: Alert, Oriented Psychiatric: Normal Affect, Normal Mood Skin Exam: Warm, Dry, Intact, Normal Color, No Rash Lymphatic: No Adenopathy Course - Vital Signs Last Recorded V/S: Last Vital Signs Temp 36.6 C 07/17/20 12:35 Pulse 99 07/17/20 13:14 Resp 16 07/17/20 13:14 BP 134/93 H 07/17/20 13:14 Pulse Ox 98 07/17/20 13:14 - Orders/Labs/Meds Labs: Laboratory Tests 07/17/20 07/17/20 Range/Units 14:00 14:00 WBC 9.65 (4.0-11.0) K/uL RBC 5.16 (4.30-5.90) M/uL Hgb 14.4 (12.0-16.0) g/dL Hct 43.7 (36.0-46.0) % MCV 84.7 (80.0-98.0) fL MCH 27.9 (27.0-32.0) pg MCHC 33.0 (31.0-37.0) g/dL RDW Std Deviation 42.6 (28.0-62.0) fl RDW Coeff of Anca 14 (11.0-15.0) % Plt Count 344 (150-400) K/uL MPV 10.10 (7.40-12.00) fL Neut % (Auto) 56.2 (48.0-80.0) % Lymph % (Auto) 32.7 (16.0-40.0) % Hart % (Auto) 7.2 (0.0-15.0) % Eos % (Auto) 3.3 (0.0-7.0) % Baso % (Auto) 0.6 (0.0-1.5) % Neut # (Auto) 5.4 (1.4-5.7) K/uL Lymph # (Auto) 3.2 H (0.6-2.4) K/uL Hart # (Auto) 0.7 (0.0-0.8) K/uL Eos # (Auto) 0.3 (0.0-0.7) K/uL Baso # (Auto) 0.1 (0.0-0.1) K/uL Nucleated RBC % 0.0 /100WBC Nucleated RBCs # 0 K/uL Sodium 140 (136-145) mmol/L Potassium 4.1 (3.5-5.1) mmol/L Chloride 105 (98-107) mmol/L Carbon Dioxide 21.0 (21.0-32.0) mmol/L BUN 10 (7.0-18.0) mg/dL Creatinine 0.8 (0.6-1.0) mg/dL Est Cr Clr Drug Dosing 72.45 mL/min Estimated GFR (MDRD) > 60.0 ml/min Glucose 100 (74-106) mg/dL Calcium 9.5 (8.5-10.1) mg/dL Total Bilirubin 0.5 (0.2-1.0) mg/dL AST 19 (15-37) IU/L ALT 29 (14-63) IU/L Alkaline Phosphatase 83 (46-116) U/L Total Protein 7.6 (6.4-8.2) g/dL Albumin 4.3 (3.4-5.0) g/dL Globulin 3.3 (2.6-4.0) g/dL Albumin/Globulin Ratio 1.3 (0.9-1.6) Meds: Medications Discontinued Medications Generic Name Dose Route Start Last Admin Trade Name Roni PRN Reason Stop Dose Admin Sodium Chloride 1,000 mls @ 999 mls/hr 07/17/20 12:53 07/17/20 13:13 Normal Saline IV 07/17/20 13:53 999 mls/hr .Bolus ONE Administration Labetalol HCl 20 mg 07/17/20 12:54 07/17/20 13:13 Normodyne IVPUSH 07/17/20 12:55 Not Given ONETIME ONE Protocol Metoclopramide HCl 10 mg 07/17/20 12:53 07/17/20 13:12 Reglan IVPUSH 07/17/20 12:54 10 mg ONETIME ONE Administration - Re-Assessments/Exams Free Text/Narrative Re-Assessment/Exam: 07/17/20 15:30 The patient did not want to finish her IV fluids as she became anxious and wanted to go home. Her BP has been labile while in the ER dropping to the 130s over the 80s and then up to the 150s over 90s. Nausea better. Departure - Departure Time of Disposition: 15:32 Disposition: Home, Self-Care 01 Condition: Good Clinical Impression: Nausea, Elevated blood pressure reading - Discharge Information Prescriptions: Metoprolol Succinate [Toprol XL] 25 mg PO DAILY #30 tab.er Referrals: Timothy Oneal MD [Primary Care Provider] - Forms: ED Department Discharge Additional Instructions: The following information is given to patients seen in the emergency department who are being discharged to home. This information is to outline your options for follow-up care. We provide all patients seen in our emergency department with a follow-up referral. The need for follow-up, as well as the timing and circumstances, are variable d epending upon the specifics of your emergency department visit. If you don't have a primary care physician on staff, we will provide you with a referral. We always advise you to contact your personal physician following an emergency department visit to inform them of the circumstance of the visit and for follow-up with them and/or the need for any referrals to a consulting specialist. The emergency department will also refer you to a specialist when appropriate. This referral assures that you have the opportunity for follow-up care with a specialist. All of these measure are taken in an effort to provide you with optimal care, which includes your follow-up. Under all circumstances we always encourage you to contact your private physician who remains a resource for coordinating your care. When calling for follow-up care, please make the office aware that this follow-up is from your recent emergency room visit. If for any reason you are refused follow-up, please contact the [facility] Emergency Department at and asked to speak to the emergency department charge nurse. 1. Take your blood pressure medication once daily. 2. Follow up with your primary provider regarding your blood pressure. 3. Follow up with your bariatric surgeon tomorrow as previously scheduled Sepsis Event Note (ED) - Evaluation Sepsis Screening Result: No Definite Risk - Focused Exam Vital Signs: Vital Signs Temp Pulse Resp BP Pulse Ox 07/17/20 13:14 99 16 134/93 H 98 07/17/20 12:35 36.6 C 117 H 18 151/109 H 100
[2020-07-17 14:30] LABS: BLOOD UREA NITROGEN,BUN 10 mg/dL (7.0-18.0); CHLORIDE,CL 105 mmol/L (98-107); GLUCOSE RANDOM 100 mg/dL (74-106); POTASSIUM,K 4.1 mmol/L (3.5-5.1); SODIUM,NA 140 mmol/L (136-145)
[2020-07-17 15:59] VITALS: BP 144/105; PULSE 103
== END 2020-07-17 15:50 | disposition home or self-care (01) ==
LOC: MW.ED 12:29
DX: I10 Essential (primary) hypertension (principal); R11.0 Nausea; E66.9 Obesity, unspecified; Z68.37 Body mass index [BMI] 37.0-37.9, adult; Z79.899 Other long term (current) drug therapy
CPT/HCPCS: 36415; 80053; 85025; 96374; 99283; J2765; J3490; J7030